=== PATIENT | female | born 1940 | race Caucasian/White ===

== ENCOUNTER 2020-11-30 22:09 | Emergency (ER) | payer MEDICARE, OTHER ==
[2020-11-30 22:17] LABS: Glucose,Whole Blood 390 mg/dL (75-99)
[2020-11-30] MEDS: SODIUM CHLORIDE 0.9% 500 ML 500 ML IV STA (22:30)
--- NOTE | 2020-11-30 22:31 | ED ---
CPR HPI - General Chief Complaint: Cardiac Arrest/CPR Stated Complaint: Cardiac Arrest Time Seen by Provider: 11/30/20 22:10 Source: EMS Mode of arrival: EMS Limitations: altered mental status - History of Present Illness Initial Comments: This patient is an 80-year-old woman who is brought by ambulance as a cardiac arrest patient. EMS was reportedly called after the patient appeared to develop distress while having a bowel movement. When they arrived, the patient was responding to them but she became unresponsive, lost vital signs and per their r eading of the hall monitor was asystolic. They instituted ACLS protocol. The patient was given oxygen by BVM. They inserted an IO line for meds and fluids. They performed CPR. On arrival here, [facility] a pulse. The patient of course not able to give any history. MD Complaint: collapsed during rest -: minute(s) Place: NH/S[facility] Bystander CPR Performed: Yes Shock Advised: No Initial Findings in the Field: unresponsive, no pulse ROSC in the Field: Yes Associated Injuries: No Treatments Prior to Arrival: BMV, epinephrine mgs # (1) - Related Data Home Medications Medication Instructions Recorded Confirmed Artificial Tears-Hypromellose 2 drops BOTH EYES QID@06,11,17,21 11/30/20 11/30/20 [Artificial Tear Drops] Ascorbic Acid [Vitamin C] 500 mg PO DAILY@0900 11/30/20 11/30/20 Aspirin 81 mg PO DAILY@0900 11/30/20 11/30/20 Calcium Carb-Vit D 500Mg-5Mcg 0.5 tab PO DAILY@0900 11/30/20 11/30/20 [Oscal 500+D 5 Mcg (200 Iu)] Ciprofloxacin HCl [Cipro] 250 mg PO BID@0900,2100 11/30/20 11/30/20 Cyclobenzaprine [Flexeril] 5 mg PO Q8H PRN 11/30/20 11/30/20 Dorzolamide 2% [Trusopt 2%] 1 drops BOTH EYES 11/30/20 11/30/20 TID@0600,1400,2200 Ferrous Sulfate [Feosol] 325 mg PO DAILY@0900 11/30/20 11/30/20 HYDROcodone/APAP 7.5-325MG [Mcalester 1 tab PO Q6H PRN 11/30/20 11/30/20 7.5-325] Insulin Glargine,Hum.rec.anlog 22 units SQ HS@209911/30/20 11/30/20 [Semglee Pen] Insulin Lispro [humaLOG Kwikpen] 6 unit SQ TID@0800,1200,1700 11/30/20 11/30/20 Latanoprost [Xalatan 0.005%] 1 drop BOTH EYES HS@209911/30/20 11/30/20 Levothyroxine Sodium [Synthroid] 75 mcg PO DAILY@59911/30/20 11/30/20 Multivitamins, Thera [Multivitamin 1 tab PO DAILY@89911/30/20 11/30/20 (formulary)] Omeprazole 20 mg PO DAILY@59911/30/20 11/30/20 Sennosides/Docusate Sodium [Senna 1 cap PO BID PRN 11/30/20 11/30/20 Plus 8.6-50 mg Softgel] Timolol 0.5% Ophth Soln [Timoptic 1 drop BOTH EYES BID@09,209911/30/20 11/30/20 0.5% Ophth Soln] Tolterodine ER [Detrol LA] 4 mg PO DAILY@89911/30/20 11/30/20 Zinc 50 mg PO DAILY@89911/30/20 11/30/20 lisinopriL 20 mg PO DAILY@209911/30/20 11/30/20 polyethylene glycoL 3350 [Miralax] 17 gm PO DAILY@89911/30/20 11/30/20 Allergies Allergy/AdvReac Type Severity Reaction Status Date / Time aloe Allergy Unknown Verified 11/30/20 23:30 Penicillins Allergy Unknown Verified 11/30/20 23:30 Review of Systems ROS Statement: Those systems with pertinent positive or pertinent negative responses have been documented in the HPI. ROS Other: All systems not noted in ROS Statement are negative. Limitations: ROS unobtainable due to patients medical condition Past Medical History Past Medical History: Unable to Obtain History of Any Multi-Drug Resistant Organisms: None Reported, Unobtainable Past Surgical History: Unable to Obtain Past Psychological History: Unable to Obtain Smoking Status: Smoker, current status unknown Past Alcohol Use History: None Reported Past Drug Use History: None Reported, Unable to Obtain General Exam Limitations: altered mental status General appearance: alert, in no apparent distress Head exam: Present: atraumatic, normocephalic Eye exam: Absent: scleral icterus, conjunctival injection Pupils: Present: mydriatic, other (There is corneal drying) ENT exam: Present: mucous membranes dry Neck exam: Present: normal inspection Respiratory exam: Present: rhonchi, other (There is no spontaneous inspiratory effort. Auscultation during bagging reveals a few scattered rhonchi) Cardiovascular Exam: Present: normal rhythm, bradycardia, normal heart sounds, other. Absent: systolic murmur, diastolic murmur, rubs, gallop GI/Abdominal exam: Present: soft. Absent: distended, tenderness, guarding, rebound, rigid, mass Extremities exam: Present: other (There is an intraosseous line in the left pretibial area). Absent: joint swelling Back exam: Present: normal inspection Neurological exam: Present: other (GCS is 3. No neurologic signs of life. ). Absent: alert Skin exam: Present: warm, dry, pallor. Absent: rash Course Vital Signs 11/30/20 11/30/20 11/30/20 22:10 22:14 22:45 Pulse Rate 76 65 Pulse Rate [ 0 L Carotid] Respiratory 0 L 20 18 Rate Blood Pressure 141/120 97/45 O2 Sat by Pulse 91 L Oximetry 11/30/20 11/30/20 12/01/20 23:08 23:24 00:20 Pulse Rate 73 43 L 38 L Pulse Rate [ Carotid] Respiratory 20 18 24 Rate Blood Pressure 90/49 111/72 83/56 O2 Sat by Pulse 92 L 89 L Oximetry 12/01/20 12/01/20 12/01/20 00:26 00:59 01:00 Pulse Rate 70 22 L 33 L Pulse Rate [ Carotid] Respiratory 24 26 H 27 H Rate Blood Pressure 109/70 101/48 101/48 O2 Sat by Pulse 63 L Oximetry 12/01/20 12/01/20 12/01/20 01:10 01:20 01:30 Pulse Rate 59 L 59 L 77 Pulse Rate [ Carotid] Respiratory 95 H 17 22 Rate Blood Pressure 85/32 127/60 56/46 O2 Sat by Pulse 91 L Oximetry 12/01/20 12/01/20 12/01/20 01:40 01:50 02:00 Pulse Rate 31 L 22 L 26 L Pulse Rate [ Carotid] Respiratory 24 26 H 26 H Rate Blood Pressure 52/27 157/141 50/36 O2 Sat by Pulse 78 L 74 L Oximetry 12/01/20 02:10 Pulse Rate 9 L Pulse Rate [ Carotid] Respiratory 26 H Rate Blood Pressure 121/85 O2 Sat by Pulse Oximetry Procedures - [place] Protocol (Time Out) Procedure Performed:: Central line Performing Provider: Sandeep Ramirez Nurse: Gisell Stringer Respiratory Therapist: Pradip Wilson Patient Identification (2 identifiers required): Chart, Arm Band, Birthdate Patient/Legal Harpsichord Maker has Confirmed: Identity, Site, Procedure - Central Line Placement Right Femoral Consent Obtained: emergent situation Patient Placed on Monitor/Pulse Ox: Yes MD Prep: mask, gown, gloves Central Line Prep: Chlorhexidine scrub Local Anesthesia Used: Lidocaine 1% Central Line Lumen Inserted: triple Bloods Obtained for Lab: Yes Central Line Position: good blood return, all ports aspirated, flushed, capped, sutured in place with nylon Dressing Applied: Tegaderm Patient Tolerated Procedure: well, no complications Complications: none - Intubation Laryngoscope: Wendy Size: 3 ET Tube Size: 7.5 ET Tube Uncuffed: No Tube Secured Depth (cm): 21 Tube Secured Location: lips Tube Placement Confirmation: visualized tube passing through cords, equal breath sounds bilaterally, no breath sounds over epigastrium, confirmation by capnometry Patient Tolerated Procedure: well, no complications Intubation Complications: none Medical Decision Making - Medical Decision Making Patient is an 80-year-old woman [facility] where she developed distress and then apparently had lost vital signs while EMS was preparing to transport her. The patient did have ROSC. The patient is intubated and as there was no venous access I placed a central line under emergency consent, see the procedure notes. Fluid resuscitation continued and the patient also given bicarb. She did have loss of palpable pulses and required CPR a total of 8 times before she no longer was responding to ACLS medications. The case is also discussed with wooden furniture polisher and they did review patient's ECGs and at this point the patient does not appear to be having acute STEMI, and patient was not stable enough for Fire Tower Keeper as she kept losing vital signs. Note that attempts were made to correct patient's acidosis, she did receive additional amps of bicarb and was placed on bicarb drip. The patient had been placed on Levophed and then also when this was not working epinephrine. I did keep the patient's family appraised of the resuscitative efforts, and then when the patient was no longer responding to medications patient was pronounced at 0228 Case discussed with the senior medical transcriptionist's office. Case will be #[id number]. - Lab Data Result diagrams: 11/30/20 22:36 11/30/20 22:36 Lab Results 11/30/20 11/30/20 11/30/20 Range/Units 22:16 22:36 22:36 WBC 12.1 H (3.8-10.6) k/uL RBC 5.08 (3.80-5.40) m/uL Hgb 13.3 (11.4-16.0) gm/dL Hct 45.0 (34.0-46.0) % MCV 88.6 (80.0-100.0) fL MCH 26.2 (25.0-35.0) pg MCHC 29.5 L (31.0-37.0) g/dL RDW 14.5 (11.5-15.5) % Plt Count 131 L (150-450) k/uL MPV 8.1 Neutrophils % 46 % Lymphocytes % 44 % Monocytes % 5 % Eosinophils % 1 % Basophils % 1 % Neutrophils # 5.6 (1.3-7.7) k/uL Lymphocytes # 5.4 H (1.0-4.8) k/uL Monocytes # 0.6 (0-1.0) k/uL Eosinophils # 0.2 (0-0.7) k/uL Basophils # 0.1 (0-0.2) k/uL Hypochromasia Marked PT 11.4 (9.0-12.0) sec INR 1.1 (<1.2) APTT 30.8 H (22.0-30.0) sec Sample Site ABG pH (7.35-7.45) ABG pCO2 (35-45) mmHg ABG pO2 (83-108) mmHg ABG HCO3 (21-25) mmol/L ABG Total CO2 (19-24) mmol/L ABG O2 Saturation (94-97) % ABG Base Excess mmol/L Stevie Test VBG pH (7.31-7.41) VBG pCO2 (37-51) mmHg VBG HCO3 (24-28) mmol/L FiO2 % Sodium (137-145) mmol/L Potassium (3.5-5.1) mmol/L Chloride (98-107) mmol/L Carbon Dioxide (22-30) mmol/L Anion Gap mmol/L BUN (7-17) mg/dL Creatinine (0.52-1.04) mg/dL Est GFR (CKD-EPI)AfAm (>60 ml/min/1.73 sqM) Est GFR (CKD-EPI)NonAf (>60 ml/min/1.73 sqM) Glucose (74-99) mg/dL POC Glucose (mg/dL) 390 H (75-99) mg/dL POC Glu Fleet Director ID Rosanne Desouza Lactic Ac Sepsis Rflx Plasma Lactic Acid Jason (0.7-2.0) mmol/L Calcium (8.4-10.2) mg/dL Magnesium (1.6-2.3) mg/dL Total Bilirubin (0.2-1.3) mg/dL AST (14-36) U/L ALT (4-34) U/L Alkaline Phosphatase (38-126) U/L Troponin I (0.000-0.034) ng/mL NT-Pro-B Natriuret Pep pg/mL Total Protein (6.3-8.2) g/dL Albumin (3.5-5.0) g/dL Urine Color Urine Appearance (Clear) Urine pH (5.0-8.0) Ur Specific [place] (1.001-1.035) Urine Protein (Negative) Urine Glucose (UA) (Negative) Urine Ketones (Negative) Urine Blood (Negative) Urine Nitrite (Negative) Urine Bilirubin (Negative) Urine Urobilinogen (<2.0) mg/dL Ur Leukocyte Esterase (Negative) Urine RBC (0-5) /hpf Urine WBC (0-5) /hpf Ur Squamous Epith Cells (0-4) /hpf Calcium Oxalate Crystal (None) /hpf Amorphous Sediment (None) /hpf Urine Bacteria (None) /hpf Hyaline Casts (0-2) /lpf Urine Mucus (None) /hpf 11/30/20 11/30/20 11/30/20 Range/Units 22:36 22:36 22:36 WBC (3.8-10.6) k/uL RBC (3.80-5.40) m/uL Hgb (11.4-16.0) gm/dL Hct (34.0-46.0) % MCV (80.0-100.0) fL MCH (25.0-35.0) pg MCHC (31.0-37.0) g/dL RDW (11.5-15.5) % Plt Count (150-450) k/uL MPV Neutrophils % % Lymphocytes % % Monocytes % % Eosinophils % % Basophils % % Neutrophils # (1.3-7.7) k/uL Lymphocytes # (1.0-4.8) k/uL Monocytes # (0-1.0) k/uL Eosinophils # (0-0.7) k/uL Basophils # (0-0.2) k/uL Hypochromasia PT (9.0-12.0) sec INR (<1.2) APTT (22.0-30.0) sec Sample Site ABG pH (7.35-7.45) ABG pCO2 (35-45) mmHg ABG pO2 (83-108) mmHg ABG HCO3 (21-25) mmol/L ABG Total CO2 (19-24) mmol/L ABG O2 Saturation (94-97) % ABG Base Excess mmol/L Stevie Test VBG pH (7.31-7.41) VBG pCO2 (37-51) mmHg VBG HCO3 (24-28) mmol/L FiO2 % Sodium 138 (137-145) mmol/L Potassium 4.3 (3.5-5.1) mmol/L Chloride 103 (98-107) mmol/L Carbon Dioxide 15 L (22-30) mmol/L Anion Gap 20 mmol/L BUN 21 H (7-17) mg/dL Creatinine 0.92 (0.52-1.04) mg/dL Est GFR (CKD-EPI)AfAm 68 (>60 ml/min/1.73 sqM) Est GFR (CKD-EPI)NonAf 59 (>60 ml/min/1.73 sqM) Glucose 405 H (74-99) mg/dL POC Glucose (mg/dL) (75-99) mg/dL POC Glu Fleet Director ID Lactic Ac Sepsis Rflx Plasma Lactic Acid Jason (0.7-2.0) mmol/L Calcium 9.4 (8.4-10.2) mg/dL Magnesium 2.5 H (1.6-2.3) mg/dL Total Bilirubin 0.2 (0.2-1.3) mg/dL AST 323 H (14-36) U/L ALT 199 H (4-34) U/L Alkaline Phosphatase 136 H (38-126) U/L Troponin I 0.134 H* (0.000-0.034) ng/mL NT-Pro-B Natriuret Pep 488 pg/mL Total Protein 5.8 L (6.3-8.2) g/dL Albumin 3.3 L (3.5-5.0) g/dL Urine Color Urine Appearance (Clear) Urine pH (5.0-8.0) Ur Specific [place] (1.001-1.035) Urine Protein (Negative) Urine Glucose (UA) (Negative) Urine Ketones (Negative) Urine Blood (Negative) Urine Nitrite (Negative) Urine Bilirubin (Negative) Urine Urobilinogen (<2.0) mg/dL Ur Leukocyte Esterase (Negative) Urine RBC (0-5) /hpf Urine WBC (0-5) /hpf Ur Squamous Epith Cells (0-4) /hpf Calcium Oxalate Crystal (None) /hpf Amorphous Sediment (None) /hpf Urine Bacteria (None) /hpf Hyaline Casts (0-2) /lpf Urine Mucus (None) /hpf 11/30/20 11/30/20 11/30/20 Range/Units 22:36 22:44 23:12 WBC (3.8-10.6) k/uL RBC (3.80-5.40) m/uL Hgb (11.4-16.0) gm/dL Hct (34.0-46.0) % MCV (80.0-100.0) fL MCH (25.0-35.0) pg MCHC (31.0-37.0) g/dL RDW (11.5-15.5) % Plt Count (150-450) k/uL MPV Neutrophils % % Lymphocytes % % Monocytes % % Eosinophils % % Basophils % % Neutrophils # (1.3-7.7) k/uL Lymphocytes # (1.0-4.8) k/uL Monocytes # (0-1.0) k/uL Eosinophils # (0-0.7) k/uL Basophils # (0-0.2) k/uL Hypochromasia PT (9.0-12.0) sec INR (<1.2) APTT (22.0-30.0) sec Sample Site ABG pH (7.35-7.45) ABG pCO2 (35-45) mmHg ABG pO2 (83-108) mmHg ABG HCO3 (21-25) mmol/L ABG Total CO2 (19-24) mmol/L ABG O2 Saturation (94-97) % ABG Base Excess mmol/L Stevie Test VBG pH 6.96 L* (7.31-7.41) VBG pCO2 61 H (37-51) mmHg VBG HCO3 13 L (24-28) mmol/L FiO2 % Sodium (137-145) mmol/L Potassium (3.5-5.1) mmol/L Chloride (98-107) mmol/L Carbon Dioxide (22-30) mmol/L Anion Gap mmol/L BUN (7-17) mg/dL Creatinine (0.52-1.04) mg/dL Est GFR (CKD-EPI)AfAm (>60 ml/min/1.73 sqM) Est GFR (CKD-EPI)NonAf (>60 ml/min/1.73 sqM) Glucose (74-99) mg/dL POC Glucose (mg/dL) (75-99) mg/dL POC Glu Fleet Director ID Lactic Ac Sepsis Rflx Y Plasma Lactic Acid Jason 11.0 H* (0.7-2.0) mmol/L Calcium (8.4-10.2) mg/dL Magnesium (1.6-2.3) mg/dL Total Bilirubin (0.2-1.3) mg/dL AST (14-36) U/L ALT (4-34) U/L Alkaline Phosphatase (38-126) U/L Troponin I (0.000-0.034) ng/mL NT-Pro-B Natriuret Pep pg/mL Total Protein (6.3-8.2) g/dL Albumin (3.5-5.0) g/dL Urine Color Urine Appearance (Clear) Urine pH (5.0-8.0) Ur Specific [place] (1.001-1.035) Urine Protein (Negative) Urine Glucose (UA) (Negative) Urine Ketones (Negative) Urine Blood (Negative) Urine Nitrite (Negative) Urine Bilirubin (Negative) Urine Urobilinogen (<2.0) mg/dL Ur Leukocyte Esterase (Negative) Urine RBC (0-5) /hpf Urine WBC (0-5) /hpf Ur Squamous Epith Cells (0-4) /hpf Calcium Oxalate Crystal (None) /hpf Amorphous Sediment (None) /hpf Urine Bacteria (None) /hpf Hyaline Casts (0-2) /lpf Urine Mucus (None) /hpf 12/01/20 12/01/20 Range/Units 00:10 00:57 WBC (3.8-10.6) k/uL RBC (3.80-5.40) m/uL Hgb (11.4-16.0) gm/dL Hct (34.0-46.0) % MCV (80.0-100.0) fL MCH (25.0-35.0) pg MCHC (31.0-37.0) g/dL RDW (11.5-15.5) % Plt Count (150-450) k/uL MPV Neutrophils % % Lymphocytes % % Monocytes % % Eosinophils % % Basophils % % Neutrophils # (1.3-7.7) k/uL Lymphocytes # (1.0-4.8) k/uL Monocytes # (0-1.0) k/uL Eosinophils # (0-0.7) k/uL Basophils # (0-0.2) k/uL Hypochromasia PT (9.0-12.0) sec INR (<1.2) APTT (22.0-30.0) sec Sample Site Right Brachial ABG pH 6.93 L* (7.35-7.45) ABG pCO2 58 H (35-45) mmHg ABG pO2 85 (83-108) mmHg ABG HCO3 12 L (21-25) mmol/L ABG Total CO2 14 L (19-24) mmol/L ABG O2 Saturation 87.0 L (94-97) % ABG Base Excess -20.2 mmol/L Stevie Test Yes VBG pH (7.31-7.41) VBG pCO2 (37-51) mmHg VBG HCO3 (24-28) mmol/L FiO2 100 % Sodium (137-145) mmol/L Potassium (3.5-5.1) mmol/L Chloride (98-107) mmol/L Carbon Dioxide (22-30) mmol/L Anion Gap mmol/L BUN (7-17) mg/dL Creatinine (0.52-1.04) mg/dL Est GFR (CKD-EPI)AfAm (>60 ml/min/1.73 sqM) Est GFR (CKD-EPI)NonAf (>60 ml/min/1.73 sqM) Glucose (74-99) mg/dL POC Glucose (mg/dL) (75-99) mg/dL POC Glu Fleet Director ID Lactic Ac Sepsis Rflx Plasma Lactic Acid Jason (0.7-2.0) mmol/L Calcium (8.4-10.2) mg/dL Magnesium (1.6-2.3) mg/dL Total Bilirubin (0.2-1.3) mg/dL AST (14-36) U/L ALT (4-34) U/L Alkaline Phosphatase (38-126) U/L Troponin I (0.000-0.034) ng/mL NT-Pro-B Natriuret Pep pg/mL Total Protein (6.3-8.2) g/dL Albumin (3.5-5.0) g/dL Urine Color Yellow Urine Appearance Cloudy H (Clear) Urine pH 5.5 (5.0-8.0) Ur Specific [place] 1.029 (1.001-1.035) Urine Protein 1+ H (Negative) Urine Glucose (UA) Negative (Negative) Urine Ketones Trace H (Negative) Urine Blood Negative (Negative) Urine Nitrite Negative (Negative) Urine Bilirubin Negative (Negative) Urine Urobilinogen 4.0 (<2.0) mg/dL Ur Leukocyte Esterase Moderate H (Negative) Urine RBC 3 (0-5) /hpf Urine WBC 20 H (0-5) /hpf Ur Squamous Epith Cells 1 (0-4) /hpf Calcium Oxalate Crystal Occasional H (None) /hpf Amorphous Sediment Few H (None) /hpf Urine Bacteria Many H (None) /hpf Hyaline Casts 2 (0-2) /lpf Urine Mucus Many H (None) /hpf Critical Care Time Critical Care Time: Yes (60 minutes) Disposition Clinical Impression: Cardiac arrest Disposition: Condition: Undetermined Referrals: Norris Nelson MD [Primary Care Provider] - 1-2 days Preliminary Cause of : cardiopulmonary arrest
[2020-11-30 22:41] LABS: Basophils # (A) 0.1 k/uL (0-0.2); Basophils % (A) 1 %; Eosinophils # (A) 0.2 k/uL (0-0.7); Eosinophils % (A) 1 %; HGB 13.3 gm/dL (11.4-16.0); Hypochromasia Marked; Lymphocytes # (A) 5.4 k/uL (1.0-4.8); Lymphocytes % (A) 44 %; MCH 26.2 pg (25.0-35.0); MCHC 29.5 g/dL (31.0-37.0); MCV 88.6 fL (80.0-100.0); Mean Platelet Volume 8.1; Monocytes # (A) 0.6 k/uL (0-1.0); Monocytes % (A) 5 %; Neutrophils # (A) 5.6 k/uL (1.3-7.7); Neutrophils % (A) 46 %; Platelet Count 131 k/uL (150-450); RBC 5.08 m/uL (3.80-5.40); RDW 14.5 % (11.5-15.5); WBC 12.1 k/uL (3.8-10.6)
[2020-11-30] MEDS: NOREPINEPHRINE 8 MG in SODIUM CHLORIDE 0.9% 250 ML IV ONE (22:49)
[2020-11-30 22:53] LABS: VBG PH 6.96 (7.31-7.41)
[2020-11-30 22:55] LABS: Albumin 3.3 g/dL (3.5-5.0); Calcium 9.4 mg/dL (8.4-10.2); Magnesium 2.5 mg/dL (1.6-2.3); Potassium 4.3 mmol/L (3.5-5.1); Total Bilirubin 0.2 mg/dL (0.2-1.3); Total Protein 5.8 g/dL (6.3-8.2)
[2020-11-30] MEDS: SODIUM CHLORIDE 0.9% 1,000 ML IV ONE (23:09)
[2020-11-30 23:10] LABS: INR 1.1 (<1.2); Partial Thromboplastin Time 30.8 sec (22.0-30.0); Prothrombin Time 11.4 sec (9.0-12.0)
--- NOTE | 2020-11-30 23:14 | XR ---
EXAMINATION TYPE: XR chest 1V portable DATE OF EXAM: 11/30/2020 COMPARISON: NONE HISTORY: Respiratory failure TECHNIQUE: Single view FINDINGS: Endotracheal tube is 2.8 cm from the keith. There is soft tissue air on the left chest wal l. There are clips at the left axilla. There is nasogastric tube in the stomach. There is no heart fa ilure. Heart size is fairly normal. There is no pneumothorax. IMPRESSION: Endotracheal tube in fairly good position. No pulmonary consolidation or heart failure. L eft axillary soft tissue air.
[2020-12-01 00:42] LABS: Amorphous Sediment,Urine Few /hpf; Appearance,Urine Cloudy (Clear); Bacteria,Urine Many /hpf; Bilirubin,Urine Negative (Negative); Blood,Urine Negative (Negative); Calcium Oxalate Crystals,Urine Occasional /hpf; Color,Urine Yellow; Glucose,Urine (UA) Negative (Negative); Hyaline Casts,Urine 2 /lpf (0-2); Ketones,Urine Trace (Negative); Leukocyte Esterase,Urine Moderate (Negative); Mucus,Urine Many /hpf; Nitrite,Urine Negative (Negative); PH, Urine 5.5 (5.0-8.0); Protein,Urine 1+ (Negative); RBC,Urine 3 /hpf (0-5); Specific Gravity,Urine 1.029 (1.001-1.035); Squamous Epithelial Cell,Urine 1 /hpf (0-4); WBC,Urine 20 /hpf (0-5)
[2020-12-01] MEDS: EPINEPHrine 4 MG in DEXTROSE 5% IN WATER 250 ML IV ONE ×2 (00:59)
[2020-12-01 01:03] LABS: ABG Base Excess -20.2 mmol/L; ABG HCO3 12 mmol/L (21-25); ABG PCO2 58 mmHg (35-45); ABG PO2 85 mmHg (83-108); ABG TCO2 14 mmol/L (19-24); Allen Test Performed? Yes
[2020-12-01] MEDS: DEXTROSE 5% IN WATER 1,000 ML with SODIUM BICARB (1 MEQ/ML) 150 ML IV SCH (01:03)
[2020-12-01 01:11] LABS: ABG PH 6.93 (7.35-7.45)
[2020-12-01 02:25] VITALS: BP 121/85; PULSE 9; RESP 26
== END 2020-12-01 02:28 | disposition expired ==
LOC: SUPCPDRO 22:09 → EC 22:09
DX: I46.9 Cardiac arrest, cause unspecified (principal); Z79.82 Long term (current) use of aspirin
CPT/HCPCS: 36415; 36600; 94002; 93005; 83880; 80053; 82805; 82803; 83605; 83735; 84484; 85025; 85610; 85730; 81001; 87040; 71045; 31500; 36556; 99291; 96365; 96375; 96368; 96366 ×2; J0171